=== PATIENT | female | born 1945 | race African-American/Black ===

== ENCOUNTER 2016-12-25 08:53 | Day surgery (SDC) | payer MEDICARE, OTHER ==
[~2016-12-25] VITALS: Ht 172.7 cm; Wt 136.1 kg
[2016-12-25] MEDS ORDERED: ONDANSETRON HCL 4MG/2ML VIAL IV PRN (10:00)
[2016-12-25] MEDS ORDERED: FENTANYL CITRATE/PF 50MCG/ML 2ML VIAL IV PRN (10:00)
[2016-12-25 10:19] LABS: BASOPHILS % 0.1 % (0.0-2.0); EOSINOPHILS % 1.9 % (0.0-5.0); HEMOGLOBIN. 9.3 g/dL (12.0-16.0); LYMPHOCYTES % 14.3 % (20.0-50.0); MEAN CORPUSCULAR VOLUME 64.8 fL (81.0-99.0); MEAN PLATELET VOLUME 6.8 fl (7.4-10.4); MONOCYTES % 8.1 % (2.0-8.0); NEUTROPHILS % 75.6 % (40.0-76.0); PLATELET 315 x1000/uL (130-400); RED BLOOD CELL COUNT 4.63 mill/uL (4.2-5.4); RED CELL DISTRIBUTION WIDTH 18.6 % (11.6-14.6)
[2016-12-25 10:30] LABS: INR 1.5; PROTHROMBIN TIME 15.7 sec
[2016-12-25] MEDS ORDERED: LACTATED RINGERS 1,000 ML IV SCH (10:30)
[2016-12-25 10:32] LABS: CARBON DIOXIDE 31 mEq/L (21-32); CHLORIDE 109 mEq/L (98-107)
[2016-12-25 11:02] LABS: PLATELET ESTIMATE NORMAL
[2016-12-25] MEDS ORDERED: WARF6TAB22 PO (12:22)
[2016-12-25] MEDS ORDERED: ALBU18HF2 IH (12:22)
[2016-12-25] MEDS ORDERED: IRBE300T18 PO (12:22)
[2016-12-25] MEDS ORDERED: HYDR-3933 PO (12:22)
[2016-12-25] MEDS ORDERED: SYSOS BOTHEYE (12:22)
[2016-12-25] MEDS ORDERED: DIME50TA21 PO (12:22)
[2016-12-25] MEDS ORDERED: GABA-531 PO (12:22)
[2016-12-25] MEDS ORDERED: SUCR1TAB30 PO (12:22)
[2016-12-25] MEDS ORDERED: AMLO10TA80 PO (12:22)
[2016-12-25] MEDS ORDERED: LORA1TAB PO (12:22)
[2016-12-25] MEDS ORDERED: OMEP20CA10 PO (12:22)
[2016-12-25] MEDS ORDERED: ATOR40TA70 PO (12:22)
[2016-12-25] MEDS ORDERED: POTA10TA15 PO (12:22)
[2016-12-25] MEDS ORDERED: HYDR12.529 PO (12:22)
[2016-12-25] MEDS ORDERED: FLUT1BLS IH (12:22)
[2016-12-25] MEDS ORDERED: METH500T PO (12:22)
== END 2016-12-25 12:30 | disposition home or self-care (01) ==
LOC: OR 08:53
PROVIDERS: ATTEND Internal Medicine Gastroenterology
DX: K29.50 Unspecified chronic gastritis without bleeding (principal); K21.9 Gastro-esophageal reflux disease without esophagitis; K44.9 Diaphragmatic hernia without obstruction or gangrene; J44.9 Chronic obstructive pulmonary disease, unspecified; Z85.3 Personal history of malignant neoplasm of breast; Z86.711 Personal history of pulmonary embolism; Z86.718 Personal history of other venous thrombosis and embolism; J45.909 Unspecified asthma, uncomplicated; Z98.890 Other specified postprocedural states; Z90.710 Acquired absence of both cervix and uterus; Z68.42 Body mass index [BMI] 45.0-49.9, adult; E66.01 Morbid (severe) obesity due to excess calories
CPT/HCPCS: 36415; 43235; 80048; 85025; 85610; 85730; 93005; J0171; J0461; J7120; J2704

== ENCOUNTER 2017-05-04 08:05 | Inpatient (IN) | payer MEDICARE, OTHER ==
[2017-05-04] VITALS (24 sets, daily range): BP systolic 119–177; BP diastolic 55–92
[~2017-05-04] VITALS: Ht 172.7 cm; Wt 117.5 kg
[~2017-05-04 08:05] MED LIST: ALBU18HF2 IH; AMLO10TA80 PO; ATOR40TA70 PO; DIME50TA26 PO; FLUT1BLS IH; GABA-531 PO; HYDR-3933 PO; HYDR12.529 PO; IRBE300T18 PO; LORA1TAB PO; METH500T PO; OMEP20CA10 PO; POTA10TA15 PO; SUCR1TAB30 PO; SYSOS BOTHEYE; WARF6TAB22 PO
[2017-05-04] MEDS ORDERED: IOHEXOL-300 100 ML BOTTLE ONE (08:57)
[2017-05-04] MEDS ORDERED: LIDOCAINE HCL 1% 20ML VIAL (Pyxis) INJ ONE (08:58)
[2017-05-04] MEDS ORDERED: ASPIRIN/SOD BICARB/CITRIC ACID 324MG TAB EFF ONE (09:03)
[2017-05-04] MEDS ORDERED: MIDAZOLAM HCL 2 MG/2 ML VIAL ONE ×2 (09:14→09:48)
[2017-05-04] MEDS ORDERED: FENTANYL CITRATE/PF 50MCG/ML 2ML VIAL ONE (09:14)
[2017-05-04] MEDS ORDERED: HYDROMORPHONE HCL/PF 2MG/ML (OR) ONE (09:28)
[2017-05-04] MEDS ORDERED: IOVERSOL 240MG/ML 100ML BOTTLE IV ONE (09:52)
[2017-05-04] MEDS ORDERED: IODIXANOL 320MG/ML 100 ML BOTTLE IV ONE (09:53)
[2017-05-04] MEDS ORDERED: CLOPIDOGREL 75MG TABLET ONE (10:16)
[2017-05-04 10:20] LABS: BASOPHILS % 0.2 % (0.0-2.0); EOSINOPHILS % 1.4 % (0.0-5.0); HEMATOCRIT. 25.5 % (36.0-48.0); HEMOGLOBIN. 7.5 g/dL (12.0-16.0); LYMPHOCYTES % 15.4 % (20.0-50.0); MEAN CORPUSCULAR HEMOGLOBIN 17.3 pg (28.0-32.0); MEAN CORPUSCULAR VOLUME 58.5 fL (81.0-99.0); MEAN PLATELET VOLUME 8.4 fl (7.4-10.4); MONOCYTES % 7.7 % (2.0-8.0); NEUTROPHILS % 75.3 % (40.0-76.0); PLATELET 328 x1000/uL (130-400); RED BLOOD CELL COUNT 4.36 mill/uL (4.2-5.4); RED CELL DISTRIBUTION WIDTH 19.3 % (11.6-14.6)
[2017-05-04] MEDS ORDERED: MORPHINE SULFATE 4 MG/ML CPJ (NOT FOR IM USE) IV PRN (10:30)
[2017-05-04] MEDS ORDERED: ONDANSETRON HCL 4MG/2ML VIAL IV PRN (10:30)
[2017-05-04] MEDS ORDERED: ATROPINE SULFATE 1MG/10ML SYR IV PRN (10:30)
[2017-05-04] MEDS ORDERED: SODIUM CHLORIDE 0.45% 1,000 ML IV ONE (10:30)
[2017-05-04] MEDS ORDERED: CLOPIDOGREL 75MG TABLET PO ONE (10:30)
[2017-05-04] MEDS ORDERED: ACETAMINOPHEN 325MG TABLET PO PRN (10:30)
[2017-05-04] MEDS ORDERED: ASPI-864 PO (11:06)
[2017-05-04] MEDS: LOSARTAN POTASSIUM 50 MG TABLET PO SCH ×2 (12:11→20:43)
[2017-05-04] MEDS: AMLODIPINE 5MG TABLET PO SCH ×2 (12:12→20:42)
[2017-05-04] MEDS ORDERED: NICARDIPINE 100MCG/ML 10ML VIAL (CATH LAB) IV ONE (12:17)
[2017-05-04] MEDS ORDERED: NITROGLYCERIN 50MCG/ML 10ML VIAL (CATH LAB) IV ONE (12:17)
[2017-05-04] MEDS ORDERED: HEPARIN SODIUM 1,000 UNIT/1ML VIAL IV ONE (12:17)
[2017-05-04 15:20] LABS: TOTAL IRON BINDING CAPACITY 437 ug/dL (250-450)
[2017-05-04 19:28] LABS: PLATELET ESTIMATE NORMAL
[2017-05-04] MEDS: ATORVASTATIN CALCIUM 40MG TABLET PO SCH (20:42)
[2017-05-04] MEDS: GABAPENTIN 300MG CAPSULE PO SCH (22:08)
[2017-05-04] MEDS: HYDROCODONE/ACETAMINOPHEN 10/325MG TABLET PO PRN (22:10)
[2017-05-05] VITALS (10 sets, daily range): BP systolic 119–146; BP diastolic 53–79
[2017-05-05 05:36] LABS: CARBON DIOXIDE 28 mEq/L (21-32); CHLORIDE 109 mEq/L (98-107)
[2017-05-05 05:56] LABS: BASOPHILS % 0.4 % (0.0-2.0); EOSINOPHILS % 2.2 % (0.0-5.0); HEMATOCRIT. 29.3 % (36.0-48.0); HEMOGLOBIN. 9.2 g/dL (12.0-16.0); LYMPHOCYTES % 14.8 % (20.0-50.0); MEAN CORPUSCULAR HEMOGLOBIN 18.9 pg (28.0-32.0); MEAN CORPUSCULAR VOLUME 60.6 fL (81.0-99.0); MEAN PLATELET VOLUME 8.4 fl (7.4-10.4); MONOCYTES % 7.4 % (2.0-8.0); NEUTROPHILS % 75.2 % (40.0-76.0); PLATELET 348 x1000/uL (130-400); RED BLOOD CELL COUNT 4.84 mill/uL (4.2-5.4); RED CELL DISTRIBUTION WIDTH 21.3 % (11.6-14.6)
[2017-05-05] MEDS: GABAPENTIN 300MG CAPSULE PO SCH ×3 (06:37→21:37)
[2017-05-05] MEDS: HYDROCODONE/ACETAMINOPHEN 10/325MG TABLET PO PRN ×2 (06:38→14:17)
[2017-05-05 07:02] LABS: VITAMIN B12 SERUM 1371 pg/mL (211-911)
[2017-05-05] MEDS: CLOPIDOGREL 75MG TABLET PO SCH (08:13)
[2017-05-05] MEDS: LOSARTAN POTASSIUM 50 MG TABLET PO SCH ×2 (08:14→21:37)
[2017-05-05] MEDS: AMLODIPINE 5MG TABLET PO SCH ×2 (08:14→21:37)
[2017-05-05] MEDS ORDERED: ASPIRIN 325MG TABLET PO SCH (09:00)
[2017-05-05] MEDS ORDERED: IRON SUCROSE COMPLEX 100 MG/5 ML ML IV NR (10:00)
[2017-05-05 13:39] LABS: PREALBUMIN 22.6 mg/dL (20.0-40.0)
[2017-05-05] MEDS: ATORVASTATIN CALCIUM 40MG TABLET PO SCH (21:37)
[2017-05-06] VITALS (7 sets, daily range): BP systolic 119–142; BP diastolic 52–66
[2017-05-06 06:04] LABS: BASOPHILS % 0.4 % (0.0-2.0); EOSINOPHILS % 3.3 % (0.0-5.0); HEMATOCRIT. 30.4 % (36.0-48.0); HEMOGLOBIN. 9.3 g/dL (12.0-16.0); LYMPHOCYTES % 13.8 % (20.0-50.0); MEAN CORPUSCULAR HEMOGLOBIN 18.7 pg (28.0-32.0); MEAN CORPUSCULAR VOLUME 61.1 fL (81.0-99.0); MEAN PLATELET VOLUME 8.4 fl (7.4-10.4); NEUTROPHILS % 74.5 % (40.0-76.0); PLATELET 350 x1000/uL (130-400); RED BLOOD CELL COUNT 4.98 mill/uL (4.2-5.4); RED CELL DISTRIBUTION WIDTH 20.8 % (11.6-14.6)
[2017-05-06] MEDS: GABAPENTIN 300MG CAPSULE PO SCH (06:41)
[2017-05-06 06:43] LABS: CHLORIDE 108 mEq/L (98-107)
[2017-05-06 07:14] LABS: CARBON DIOXIDE 25 mEq/L (21-32)
[2017-05-06 07:29] LABS: TROPONIN I < 0.02 ng/mL (0.00-0.04)
[2017-05-06] MEDS: CLOPIDOGREL 75MG TABLET PO SCH (08:07)
[2017-05-06] MEDS: HYDROCODONE/ACETAMINOPHEN 10/325MG TABLET PO PRN (08:07)
[2017-05-06] MEDS: LOSARTAN POTASSIUM 50 MG TABLET PO SCH (08:24)
[2017-05-06] MEDS: AMLODIPINE 5MG TABLET PO SCH (08:25)
[2017-05-06] MEDS ORDERED: ASPIRIN 81MG EC TABLET PO SCH (09:00)
[2017-05-06] MEDS ORDERED: IRON SUCROSE COMPLEX 100 MG/5 ML ML IV SCH (09:00)
== END 2017-05-06 11:45 | disposition home or self-care (01) | DRG 247 ==
LOC: CCL 08:05 → 3WST 08:06
PROVIDERS: ADMIT Specialist; ATTEND Specialist
PROC: 4A023N7 Measurement of Cardiac Sampling and Pressure, Left Heart, Percutaneous Approach (ICD-10-PCS; principal; 2017-05-04)
PROC: 027035Z Dilation of Coronary Artery, One Artery with Two Drug-eluting Intraluminal Devices, Percutaneous Approach (ICD-10-PCS; 2017-05-04)
PROC: B2111ZZ Fluoroscopy of Multiple Coronary Arteries using Low Osmolar Contrast (ICD-10-PCS; 2017-05-04)
PROC: B2151ZZ Fluoroscopy of Left Heart using Low Osmolar Contrast (ICD-10-PCS; 2017-05-04)
PROC: 30233N1 Transfusion of Nonautologous Red Blood Cells into Peripheral Vein, Percutaneous Approach (ICD-10-PCS; 2017-05-04)
DX: I25.10 Atherosclerotic heart disease of native coronary artery without angina pectoris (principal); E11.42 Type 2 diabetes mellitus with diabetic polyneuropathy; I11.9 Hypertensive heart disease without heart failure; D50.9 Iron deficiency anemia, unspecified; E66.9 Obesity, unspecified; E78.00 Pure hypercholesterolemia, unspecified; F32.9 Major depressive disorder, single episode, unspecified; F41.9 Anxiety disorder, unspecified; I77.1 Stricture of artery; J44.9 Chronic obstructive pulmonary disease, unspecified; K21.9 Gastro-esophageal reflux disease without esophagitis; K44.9 Diaphragmatic hernia without obstruction or gangrene; M54.30 Sciatica, unspecified side; Z96.659 Presence of unspecified artificial knee joint; Z85.3 Personal history of malignant neoplasm of breast; Z86.718 Personal history of other venous thrombosis and embolism; Z92.3 Personal history of irradiation; Z86.711 Personal history of pulmonary embolism; Z79.01 Long term (current) use of anticoagulants; Z91.040 Latex allergy status; Z90.710 Acquired absence of both cervix and uterus; Z68.39 Body mass index [BMI] 39.0-39.9, adult
CPT/HCPCS: 36415; 80048; 80053; 82040; 82270; 82607; 82728; 83540; 83550; 84134; 84484; 85025; 85347; 86850; 86900; 86920; 92928; 93005; 93458; C1769; C1887; C1893; J1170; J1644; J2250; J2270; J3010; J3490; J7050; P9016; Q9967; A4315

== ENCOUNTER 2017-06-11 08:54 | Day surgery (SDC) | payer MEDICARE, OTHER ==
[~2017-06-11] VITALS: Ht 172.7 cm; Wt 127.0 kg
[~2017-06-11 08:54] MED LIST changes: +APIX2.5T PO; +ASPI-1159 PO; +CLOP75TA16 PO; +NITR0.4T49 SL; -WARF6TAB22 PO
[2017-06-11] MEDS ORDERED: LACTATED RINGERS 1,000 ML IV SCH (10:20)
[2017-06-11] MEDS ORDERED: LIDOCAINE HCL 1% 20ML VIAL (Pyxis) INJ ONE (11:16)
[2017-06-11] MEDS ORDERED: PROPOFOL 200MG/20ML VIAL IV ONE ×3 (11:16→11:37)
[2017-06-11] MEDS ORDERED: FENTANYL CITRATE/PF 50MCG/ML 2ML VIAL IV PRN (12:15)
[2017-06-11] MEDS ORDERED: ONDANSETRON HCL 4MG/2ML VIAL IV PRN (12:15)
== END 2017-06-11 13:45 | disposition home or self-care (01) ==
LOC: OR 08:54
PROVIDERS: ATTEND Internal Medicine Gastroenterology
DX: K63.5 Polyp of colon (principal); K57.30 Diverticulosis of large intestine without perforation or abscess without bleeding; K63.3 Ulcer of intestine; K64.8 Other hemorrhoids; I25.10 Atherosclerotic heart disease of native coronary artery without angina pectoris; K44.9 Diaphragmatic hernia without obstruction or gangrene; K21.9 Gastro-esophageal reflux disease without esophagitis; J44.9 Chronic obstructive pulmonary disease, unspecified; E66.01 Morbid (severe) obesity due to excess calories; M19.90 Unspecified osteoarthritis, unspecified site; D50.9 Iron deficiency anemia, unspecified; Z79.01 Long term (current) use of anticoagulants; Z79.82 Long term (current) use of aspirin; Z85.3 Personal history of malignant neoplasm of breast; Z86.711 Personal history of pulmonary embolism; Z86.718 Personal history of other venous thrombosis and embolism; Z90.710 Acquired absence of both cervix and uterus; Z95.5 Presence of coronary angioplasty implant and graft
CPT/HCPCS: 45380; 88305; C1893; J3490; J7120; J2704

== ENCOUNTER 2017-07-23 09:02 | Day surgery (SDC) | payer MEDICARE, OTHER ==
[2017-07-23 10:06] LABS: BASOPHILS % 0.3 % (0.0-2.0); EOSINOPHILS % 2.4 % (0.0-5.0); HEMATOCRIT. 36.3 % (36.0-48.0); HEMOGLOBIN. 11.5 g/dL (12.0-16.0); LYMPHOCYTES % 17.7 % (20.0-50.0); MEAN CORPUSCULAR HEMOGLOBIN 24.1 pg (28.0-32.0); MEAN CORPUSCULAR VOLUME 76.1 fL (81.0-99.0); MEAN PLATELET VOLUME 8.4 fl (7.4-10.4); MONOCYTES % 8.4 % (2.0-8.0); NEUTROPHILS % 71.2 % (40.0-76.0); PLATELET 273 x1000/uL (130-400); RED BLOOD CELL COUNT 4.77 mill/uL (4.2-5.4); RED CELL DISTRIBUTION WIDTH 21.7 % (11.6-14.6)
[2017-07-23 10:10] LABS: CHLORIDE 108 mEq/L (98-107)
[2017-07-23] MEDS ORDERED: SIMETHICONE 40 MG/0.6 ML 30ML ONE (10:11)
[2017-07-23 10:13] LABS: INR 1.1; PARTIAL THROMBOPLASTIN TIME 26.2 sec (23.4-31.0); PROTHROMBIN TIME 10.9 sec (9.4-11.6)
[2017-07-23 10:26] LABS: CARBON DIOXIDE 31 mEq/L (21-32)
[2017-07-23] MEDS ORDERED: DIME50TA PO (10:43)
[2017-07-23] MEDS ORDERED: TIZA4TAB4 PO (10:43)
[2017-07-23] MEDS ORDERED: FERR256T PO (10:43)
[2017-07-23] MEDS ORDERED: PRAV40TA58 PO (10:43)
[2017-07-23] MEDS ORDERED: LACTATED RINGERS 1,000 ML IV SCH (11:00)
[2017-07-23] MEDS ORDERED: PROPOFOL 200MG/20ML VIAL IV ONE ×2 (11:12→12:09)
[2017-07-23] MEDS ORDERED: LIDOCAINE HCL/PF 1% 10 MG/ML 5ML VIAL ONE (11:12)
[2017-07-23] MEDS ORDERED: FENTANYL CITRATE/PF 50MCG/ML 2ML VIAL ONE ×2 (11:25→11:50)
[2017-07-23] MEDS ORDERED: MIDAZOLAM HCL 2 MG/2 ML VIAL ONE ×5 (11:26→12:38)
[2017-07-23] MEDS ORDERED: MORPHINE SULFATE 4 MG/ML CPJ (NOT FOR IM USE) IV PRN (13:00)
== END 2017-07-23 14:15 | disposition home or self-care (01) ==
LOC: OR 09:02
PROVIDERS: ATTEND Internal Medicine Gastroenterology
DX: C18.0 Malignant neoplasm of cecum (principal); D12.2 Benign neoplasm of ascending colon; D12.3 Benign neoplasm of transverse colon; K57.30 Diverticulosis of large intestine without perforation or abscess without bleeding; K64.8 Other hemorrhoids; K21.9 Gastro-esophageal reflux disease without esophagitis; K44.9 Diaphragmatic hernia without obstruction or gangrene; D50.9 Iron deficiency anemia, unspecified; I25.10 Atherosclerotic heart disease of native coronary artery without angina pectoris; J44.9 Chronic obstructive pulmonary disease, unspecified; E66.01 Morbid (severe) obesity due to excess calories; M19.90 Unspecified osteoarthritis, unspecified site; Z79.01 Long term (current) use of anticoagulants; Z79.82 Long term (current) use of aspirin; Z85.3 Personal history of malignant neoplasm of breast; Z86.010 Personal history of colon polyps; Z86.711 Personal history of pulmonary embolism; Z86.718 Personal history of other venous thrombosis and embolism; Z90.710 Acquired absence of both cervix and uterus; Z95.5 Presence of coronary angioplasty implant and graft
CPT/HCPCS: 36415; 45380; 45385; 71045; 80048; 85025; 85610; 85730; 88305; 93005; J2250; J3010; J3490; J7120; J2704

== ENCOUNTER 2017-09-11 15:45 | Emergency (ER) | payer MEDICARE, OTHER ==
[~2017-09-11] VITALS: Ht 170.2 cm; Wt 136.0 kg
[~2017-09-11 15:45] MED LIST changes: -APIX2.5T PO; -ASPI-1159 PO; -CLOP75TA16 PO; +DIME50TA PO; +FERR256T PO; +PRAV40TA58 PO; +TIZA4TAB4 PO
[2017-09-11 17:33] LABS: HEMATOCRIT. 31.1 % (36.0-48.0); MEAN CORPUSCULAR HEMOGLOBIN 24.6 pg (28.0-32.0); MEAN CORPUSCULAR VOLUME 76.6 fL (81.0-99.0); MEAN PLATELET VOLUME 7.3 fl (7.4-10.4); PLATELET 434 x1000/uL (130-400); RED BLOOD CELL COUNT 4.06 mill/uL (4.2-5.4); RED CELL DISTRIBUTION WIDTH 17.4 % (11.6-14.6)
[2017-09-11 17:37] LABS: CHLORIDE 105 mEq/L (98-107)
[2017-09-11 17:38] LABS: PARTIAL THROMBOPLASTIN TIME 30.5 sec (23.4-31.0); PROTHROMBIN TIME 10.7 sec (9.4-11.6)
[2017-09-11] MEDS ORDERED: SODIUM CHLORIDE 0.9% 1,000 ML IV ONE (18:30)
[2017-09-11 18:41] LABS: PLATELET ESTIMATE SLIGHTLY INCREASED
[2017-09-11] MEDS ORDERED: SODIUM CHLORIDE 0.9% 100 ML IV SCH (22:30)
[2017-09-12] MEDS ORDERED: ENOXAPARIN 150MG/ML SYR SUBCUT NR (04:15)
[2017-09-12 05:20] LABS: HEMATOCRIT. 29.1 % (36.0-48.0); HEMOGLOBIN. 9.5 g/dL (12.0-16.0); MEAN CORPUSCULAR HEMOGLOBIN 25.2 pg (28.0-32.0); MEAN CORPUSCULAR VOLUME 77.2 fL (81.0-99.0); MEAN PLATELET VOLUME 7.3 fl (7.4-10.4); PLATELET 409 x1000/uL (130-400); RED BLOOD CELL COUNT 3.76 mill/uL (4.2-5.4); RED CELL DISTRIBUTION WIDTH 17.4 % (11.6-14.6)
[2017-09-12 07:08] LABS: PLATELET ESTIMATE SLIGHTLY INCREASED
[2017-09-12 07:45] VITALS: BP 135/66
[2017-09-12 08:21] LABS: PHOSPHORUS 3.2 mg/dL (2.5-4.9)
[2017-09-12] MEDS ORDERED: FLUTICASONE/VILANTEROL 200-25 BLST.W.DEV ORI SCH (09:00)
[2017-09-12] MEDS ORDERED: CLOPIDOGREL 75MG TABLET PO SCH (09:00)
== END 2017-09-12 08:43 | disposition left against medical advice (07) ==
LOC: ER 15:51 → EDBEDREQ 19:58 → EDBEDREQTM 19:58 → ER 09-12 08:43 → CANBEDREQ 09-12 08:59
DX: N17.9 Acute kidney failure, unspecified (principal); R06.00 Dyspnea, unspecified; J44.1 Chronic obstructive pulmonary disease with (acute) exacerbation; I10 Essential (primary) hypertension; E78.00 Pure hypercholesterolemia, unspecified; E11.9 Type 2 diabetes mellitus without complications; Z85.3 Personal history of malignant neoplasm of breast; Z88.2 Allergy status to sulfonamides; Z88.6 Allergy status to analgesic agent; Z79.02 Long term (current) use of antithrombotics/antiplatelets; Z79.82 Long term (current) use of aspirin; Z90.49 Acquired absence of other specified parts of digestive tract; Z85.038 Personal history of other malignant neoplasm of large intestine; Z86.711 Personal history of pulmonary embolism; Z86.718 Personal history of other venous thrombosis and embolism; Z91.040 Latex allergy status; Z98.890 Other specified postprocedural states
CPT/HCPCS: 36415; 71045; 80048; 80053; 82553; 82962; 83690; 83735; 83880; 84100; 84484; 85025; 85379; 85610; 85730; 93005; 93970; 96360; 96361; 99285; J1650; J7030

== ENCOUNTER 2018-03-01 08:01 | Day surgery (SDC) | payer MEDICARE, OTHER ==
[~2018-03-01] VITALS: Ht 172.7 cm; Wt 120.7 kg
[2018-03-01] MEDS ORDERED: ASPI-1158 MT (09:34)
[2018-03-01] MEDS ORDERED: APIX2.5T MT (09:34)
[2018-03-01] MEDS ORDERED: CLOP75TA16 MT (09:34)
[2018-03-01] MEDS ORDERED: MIDAZOLAM HCL 2 MG/2 ML VIAL ONE (09:51)
[2018-03-01] MEDS ORDERED: LIDOCAINE HCL 1% 10 MG/ML 10ML VIAL ONE (09:52)
[2018-03-01] MEDS ORDERED: IODIXANOL 320MG/ML 100 ML BOTTLE IV ONE (09:52)
[2018-03-01] MEDS ORDERED: FENTANYL CITRATE/PF 50MCG/ML 2ML VIAL ONE (09:52)
[2018-03-01] MEDS ORDERED: HEPARIN SODIUM 1,000 UNIT/1ML VIAL IV ONE (10:00)
[2018-03-01] MEDS ORDERED: NITROGLYCERIN 50MCG/ML 10ML VIAL (CATH LAB) IV ONE (10:00)
[2018-03-01] MEDS ORDERED: NICARDIPINE 100MCG/ML 10ML VIAL (CATH LAB) IV ONE (10:00)
[2018-03-01] MEDS ORDERED: ATROPINE SULFATE 1MG/10ML SYR IV PRN (10:30)
[2018-03-01] MEDS ORDERED: ONDANSETRON HCL 4MG/2ML VIAL IV PRN (10:30)
[2018-03-01] MEDS ORDERED: ACETAMINOPHEN 325MG TABLET PO PRN (10:30)
== END 2018-03-01 14:00 | disposition home or self-care (01) ==
LOC: CCL 08:01
PROVIDERS: ATTEND Specialist
DX: I25.10 Atherosclerotic heart disease of native coronary artery without angina pectoris (principal); E78.00 Pure hypercholesterolemia, unspecified; J45.909 Unspecified asthma, uncomplicated; J44.9 Chronic obstructive pulmonary disease, unspecified; E11.9 Type 2 diabetes mellitus without complications; F41.9 Anxiety disorder, unspecified; F32.9 Major depressive disorder, single episode, unspecified; E66.01 Morbid (severe) obesity due to excess calories; M19.90 Unspecified osteoarthritis, unspecified site; Z88.2 Allergy status to sulfonamides; I10 Essential (primary) hypertension; Z98.890 Other specified postprocedural states; Z90.49 Acquired absence of other specified parts of digestive tract; Z91.040 Latex allergy status; Z79.02 Long term (current) use of antithrombotics/antiplatelets; Z95.5 Presence of coronary angioplasty implant and graft; Z79.899 Other long term (current) drug therapy; Z79.82 Long term (current) use of aspirin; Z90.710 Acquired absence of both cervix and uterus; Z88.6 Allergy status to analgesic agent; Z85.3 Personal history of malignant neoplasm of breast; Z85.038 Personal history of other malignant neoplasm of large intestine; Z98.42 Cataract extraction status, left eye; Z68.42 Body mass index [BMI] 45.0-49.9, adult; Z96.652 Presence of left artificial knee joint
CPT/HCPCS: 93454; 99152; C1769; C1887; C1893; J1644; J2250; J3010; J3490; Q9967

== ENCOUNTER 2018-07-12 08:31 | Inpatient (IN) | payer MEDICARE, OTHER ==
[~2018-07-12] VITALS: Ht 172.7 cm; Wt 117.5 kg
[~2018-07-12 08:31] MED LIST changes: +APIX2.5T MT; +ASPI-1158 MT; +CLOP75TA16 MT
[2018-07-12] MEDS ORDERED: ASPIRIN/SOD BICARB/CITRIC ACID 324MG TAB EFF ONE (11:50)
[2018-07-12] MEDS ORDERED: LIDOCAINE HCL 1% 20ML VIAL (Pyxis) INJ ONE (11:57)
[2018-07-12] MEDS ORDERED: MIDAZOLAM HCL 2 MG/2 ML VIAL ONE ×2 (11:58→12:40)
[2018-07-12] MEDS ORDERED: IODIXANOL 320MG/ML 100 ML BOTTLE IV ONE (11:58)
[2018-07-12] MEDS ORDERED: FENTANYL CITRATE/PF 50MCG/ML 2ML VIAL ONE (11:58)
[2018-07-12] MEDS ORDERED: IOHEXOL-300 100 ML BOTTLE ONE (12:14)
[2018-07-12] MEDS ORDERED: ONDANSETRON HCL 4MG/2ML INJ ONE (12:57)
[2018-07-12] MEDS ORDERED: MORPHINE SULFATE 4 MG/ML CPJ (NOT FOR IM USE) IV PRN (13:00)
[2018-07-12] MEDS ORDERED: AMLODIPINE 5MG TABLET PO SCH (13:00)
[2018-07-12] MEDS ORDERED: NITROGLYCERIN OINT 1GM/INCH UDPKT TD ONE (13:00)
[2018-07-12] MEDS ORDERED: SODIUM CHLORIDE 0.45% 1,000 ML IV ONE (13:00)
[2018-07-12] MEDS ORDERED: ATROPINE SULFATE 1MG/10ML SYR IV PRN (13:00)
[2018-07-12] MEDS ORDERED: ONDANSETRON HCL 4MG/2ML INJ IV PRN (13:00)
[2018-07-12] MEDS ORDERED: CLOPIDOGREL 75MG TABLET PO ONE (13:00)
[2018-07-12] MEDS ORDERED: CLOP75TA16 PO (13:27)
[2018-07-12] MEDS ORDERED: APIX5TAB PO (13:42)
[2018-07-12] MEDS ORDERED: HYDR25TA PO (13:48)
[2018-07-12] MEDS ORDERED: HEPARIN SODIUM 1,000 UNIT/1ML VIAL IV ONE ×2 (14:45→15:15)
[2018-07-12] MEDS ORDERED: NITROGLYCERIN 50MCG/ML 10ML VIAL (CATH LAB) IV ONE (15:15)
[2018-07-12] MEDS ORDERED: NICARDIPINE 100MCG/ML 10ML VIAL (CATH LAB) IV ONE (15:15)
[2018-07-12 18:22] VITALS: BP 150/52
[2018-07-12 18:24] VITALS: BP 150/52
[2018-07-12] MEDS: ASPIRIN 81MG TABLET PO SCH (18:59)
[2018-07-12] MEDS: LOSARTAN POTASSIUM 50 MG TABLET PO SCH (18:59)
[2018-07-12 20:00] VITALS: BP 141/66
[2018-07-12] MEDS: AMLODIPINE 5MG TABLET PO SCH (21:09)
[2018-07-12 22:00] VITALS: BP 161/74
[2018-07-13] VITALS (7 sets, daily range): BP systolic 141–155; BP diastolic 60–80
[2018-07-13] MEDS: ACETAMINOPHEN 325MG TABLET PO PRN ×2 (01:05→05:36)
[2018-07-13 07:10] LABS: BASOPHILS % 0.4 % (0.0-2.0); EOSINOPHILS % 3.8 % (0.0-5.0); HEMATOCRIT. 29.7 % (36.0-48.0); HEMOGLOBIN. 9.3 g/dL (12.0-16.0); LYMPHOCYTES % 21.6 % (20.0-50.0); MEAN CORPUSCULAR HEMOGLOBIN 23.8 pg (28.0-32.0); MEAN CORPUSCULAR VOLUME 75.5 fL (81.0-99.0); MEAN PLATELET VOLUME 7.5 fl (7.4-10.4); MONOCYTES % 9.1 % (2.0-8.0); NEUTROPHILS % 65.1 % (40.0-76.0); PLATELET 233 x1000/uL (130-400); RED BLOOD CELL COUNT 3.93 mill/uL (4.2-5.4); RED CELL DISTRIBUTION WIDTH 18.6 % (11.6-14.6)
[2018-07-13] MEDS: ASPIRIN 81MG TABLET PO SCH (08:09)
[2018-07-13] MEDS: AMLODIPINE 5MG TABLET PO SCH (08:10)
[2018-07-13] MEDS: LOSARTAN POTASSIUM 50 MG TABLET PO SCH (08:10)
[2018-07-13] MEDS ORDERED: CLOPIDOGREL 75MG TABLET PO SCH (09:00)
[2018-07-13] MEDS ORDERED: HYDROCODONE/ACETAMINOPHEN 5/325MG TABLET PO NR (10:00)
== END 2018-07-13 11:50 | disposition home or self-care (01) | DRG 247 ==
LOC: CCL 08:31 → 3WST 17:56
PROVIDERS: ADMIT Specialist; ATTEND Specialist
PROC: 027034Z Dilation of Coronary Artery, One Artery with Drug-eluting Intraluminal Device, Percutaneous Approach (ICD-10-PCS; principal; 2018-07-12)
PROC: 4A023N7 Measurement of Cardiac Sampling and Pressure, Left Heart, Percutaneous Approach (ICD-10-PCS; 2018-07-12)
PROC: B2111ZZ Fluoroscopy of Multiple Coronary Arteries using Low Osmolar Contrast (ICD-10-PCS; 2018-07-12)
DX: I25.10 Atherosclerotic heart disease of native coronary artery without angina pectoris (principal); E66.9 Obesity, unspecified; I10 Essential (primary) hypertension; J44.9 Chronic obstructive pulmonary disease, unspecified; Z79.02 Long term (current) use of antithrombotics/antiplatelets; Z79.899 Other long term (current) drug therapy; Z85.038 Personal history of other malignant neoplasm of large intestine; Z95.5 Presence of coronary angioplasty implant and graft; Z88.2 Allergy status to sulfonamides; Z91.040 Latex allergy status; Z68.39 Body mass index [BMI] 39.0-39.9, adult
CPT/HCPCS: 36415; 80048; 85347; 92928; 93005; 93458; C1769; C1874; C1887; C1893; J1644; J2250; J2270; J2405; J3010; J3490; Q9967

== ENCOUNTER → 2018-08-17 | Outpatient (CLI) | payer MEDICARE, OTHER ==
[~2018-08-17] MED LIST changes: -APIX2.5T MT; -ASPI-1158 MT; -ATOR40TA70 PO; +BARIUM SULFATE 450ML ORAL SUSP ONE; +CLOP75TA16 PO; -DIME50TA PO; -DIME50TA26 PO; -FERR256T PO; -FLUT1BLS IH; -HYDR12.529 PO; +HYDR25TA PO; +IOHEXOL-300 100 ML BOTTLE ONE; -METH500T PO; -NITR0.4T49 SL; -OMEP20CA10 PO; -SUCR1TAB30 PO
== END | disposition home or self-care (01) ==
LOC: CT 08:44
PROVIDERS: ATTEND Internal Medicine Hematology & Oncology
DX: I25.10 Atherosclerotic heart disease of native coronary artery without angina pectoris (principal); K82.8 Other specified diseases of gallbladder; R91.1 Solitary pulmonary nodule; C18.2 Malignant neoplasm of ascending colon; C50.412 Malignant neoplasm of upper-outer quadrant of left female breast; D50.0 Iron deficiency anemia secondary to blood loss (chronic); E66.01 Morbid (severe) obesity due to excess calories; K59.00 Constipation, unspecified
CPT/HCPCS: 71260; 74177; Q9967